=== PATIENT | male | born 1950 | race Caucasian/White ===

== ENCOUNTER → 2017-03-16 | Day surgery (SDC) | payer MEDICARE ==
[~2017-03-16] MED LIST: LIDOCAINE URO-JET JELLY 2% 5 ML KIT URETHRAL ONE
[2017-03-16 11:41] VITALS: BP 187/98; PULSE 74; RESP 18; TEMP 98.5
--- NOTE | 2017-03-16 12:51 | P.OP ---
Date of Procedure: 03/16/17 Preoperative Diagnosis: Urinary retention secondary to urethral stricture Postoperative Diagnosis: Urinary retention secondary to urethral stricture Procedure(s) Performed: Dilation of urethral stricture with sequential ureteral dilators and placement of urethral catheter Anesthesia: local Surgeon: Renny Bhagat Estimated Blood Loss (ml): 0 Pathology: none sent Condition: stable Disposition: same day Indications for Procedure: The patient is a 66-year-old male with a history of prostate cancer previously treated with brachytherapy and external beam radiation therapy. He has developed urinary retention secondary to a urethral stricture and has been performing self dilation 4 times daily with a 16-Bermudian catheter. Approximally 9 days ago he was unable to pass his catheter and has not catheterized himself since then. He came to my office this morning and it was impossible to pass a filiform and follower into the bladder but I was able to advance a 0.035 Glidewire through the urethral stricture and into the bladder using cystoscopic guidance. I was unable to place a catheter over the Glidewire. Dilation of the stricture using sequential coaxial dilators is planned Description of Procedure: The patient was placed supine and the penis was prepped with Betadine solution and draped in a sterile fashion. Beginning with an 8-Bermudian coaxial dilator his urethral stricture was dilated over the Glidewire to 18-Bermudian. A 16- [place] coud catheter was modified with a slit at its tip and I attempted to advance this into the bladder over the Glidewire but this proved impossible. Attempts at passing a 14-Bermudian and 12-Bermudian coud catheters were also unsuccessful. The urethral stricture was dilated to 20-Bermudian over the Glidewire but again it was impossible to pass the 16 or 14-Bermudian catheters over the Glidewire. The Glidewire was switched to a 0.038 superstiff Glidewire and a 6-Bermudian open-ended ureteral catheter was passed through a 16-Bermudian catheter to provide additional stiffness but this also proved impossible to pass into the bladder. The superstiff catheter was exchanged for an 035 Glidewire and I was eventually able to advance a 12-Bermudian coud catheter with a slit cut at its tip over the Glidewire and into the bladder. The Glidewire was withdrawn and the catheter was left to gravity drainage. The patient tolerated procedure well. There was no significant bleeding. Patient be seen back by me in 1 week at which time his urethra we dilated further. He was given gentamicin 100 mg IM in my office earlier this morning and will take Cipro 500 mg 3 times a day for the next 4 days.
== END | disposition home or self-care (01) ==
LOC: PROCWHC3 11:27
PROVIDERS: ATTEND Urology
DX: N35.9 Urethral stricture, unspecified (principal); R33.8 Other retention of urine; Z85.46 Personal history of malignant neoplasm of prostate; Z92.3 Personal history of irradiation; Z88.0 Allergy status to penicillin
CPT/HCPCS: 52281; C1769; C1758; G0463; 99213